=== PATIENT | male | born 1995 | race African-American/Black ===

== ENCOUNTER 2018-08-02 16:13 | Inpatient (IN) | payer BC ==
--- NOTE | 2018-08-02 16:42 | ED ---
General Adult HPI - General Chief complaint: Psychiatric Symptoms Stated complaint: suicidal Time Seen by Provider: 08/02/18 16:20 Source: patient, family, RN notes reviewed Mode of arrival: ambulatory Limitations: no limitations - History of Present Illness Initial comments: This is a 23-year-old male presents emergency Department with a past medical history significant for bipolar. Patient states he does not any medications because he never like to wait it made him feel. Patient states over the last month or so he is having more more anger also bursts and started hearing voices. Patient also states having quite a few instances where he feels suicidal. Patient states he recently had his gun loaded and constipating shooting himself. Patient decided that if he wanted to live he had the cells consult recently sold his gun so he would not shoot himself. Patient states he still feels that he might do something rash because he still feeling suicidal. Patient denies any physical complaints today. Patient denies any chest pain difficulty breathing first breath per patient denies any recent fever chills or cough per patient denies abdominal pain patient denies nausea vomiting or diarrhea. Patient denies any recent injury or trauma - Related Data Home Medications Medication Instructions Recorded Confirmed No Known Home Medications 08/02/18 08/02/18 Allergies Allergy/AdvReac Type Severity Reaction Status Date / Time No Known Allergies Allergy Verified 08/02/18 16:57 Review of Systems ROS Statement: Those systems with pertinent positive or pertinent negative responses have been documented in the HPI. ROS Other: All systems not noted in ROS Statement are negative. Past Medical History Past Medical History: Asthma History of Any Multi-Drug Resistant Organisms: None Reported Past Surgical History: No Surgical Hx Reported Past Psychological History: Bipolar Smoking Status: Current every day smoker Past Alcohol Use History: None Reported Past Drug Use History: None Reported General Exam - General Exam Comments Initial Comments: GENERAL: Patient is well-developed and well-nourished. Patient is nontoxic and well- hydrated and is in no acute distress. ENT: Neck is soft and supple. No significant lymphadenopathy is noted. Moist mucous membranes. Neck has full range of motion without eliciting any pain. EYES: The sclera were anicteric and conjunctiva were pink and moist. Extraocular movements were intact and pupils were equal round and reactive to light. Eyelids were unremarkable. PULMONARY: Unlabored respirations. Good breath sounds bilaterally. No audible rales rhonchi or wheezing was noted. CARDIOVASCULAR: There is a regular rate and rhythm without any murmurs gallops or rubs. ABDOMEN: Soft and nontender with normal bowel sounds. SKIN: Skin is clear with no lesions or rashes and otherwise unremarkable. NEUROLOGIC: Patient is alert and oriented x3. Cranial nerves II through XII are grossly intact. Motor and sensory are also intact. Normal speech, volume and content. Symmetrical smile. MUSCULOSKELETAL: Normal extremities with adequate strength and full range of motion. LYMPHATICS: No significant lymphadenopathy is noted PSYCHIATRIC: Patient states he suicidal. Patient also states he is hearing voices. Limitations: no limitations Course Vital Signs 08/02/18 16:18 Temperature 98.8 F Pulse Rate 81 Respiratory 16 Rate Blood Pressure 181/109 O2 Sat by Pulse 100 Oximetry Medical Decision Making - Medical Decision Making EPS evaluated the patient and determined that the patient needed to be admitted patient will be admitted to 3 . Disposition Clinical Impression: Suicidal ideation, Depression, Auditory hallucinations Disposition: ADMITTED IP TO THIS HOSP Condition: Stable Referrals: None,Stated [Primary Care Provider] - 1-2 days Time of Disposition: 19:27
[2018-08-02] MEDS ORDERED: ACETAMINOPHEN TAB 325 MG TAB PO PRN (19:32)
[2018-08-02] MEDS ORDERED: ZIPRASIDONE 20 MG VIAL IM PRN (19:32)
[2018-08-02] MEDS ORDERED: MAGNESIUM HYDROXIDE 2,400 MG/10 ML CUP PO PRN (19:32)
[2018-08-02] MEDS ORDERED: LORazepam 1 MG TAB PO PRN (19:32)
[2018-08-02] MEDS ORDERED: MAG HYDROX/AL HYDROX/SIMETH 30 ML CUP PO PRN (19:32)
--- NOTE | 2018-08-03 09:54 | P.HP ---
Psychiatric H&P - . H&P Date: 08/03/18 History & Physical: Allergies Allergy/AdvReac Type Severity Reaction Status Date / Time No Known Allergies Allergy Verified 08/02/18 16:57 Vital Signs Temp 97.8 F 08/03/18 06:33 Pulse 65 08/03/18 06:33 Resp 16 08/03/18 06:33 BP 116/66 08/03/18 06:33 Pulse Ox 99 08/02/18 21:00 Intake & Output 08/02/18 08/03/18 08/03/18 18:59 06:59 18:59 Weight 99.79 kg 104.6 kg Assessment and Plan Assessment: HPI: This is a 23-year-old male presents emergency Department with a past medical history significant for bipolar. Patient states he does not any medications because he never like to wait it made him feel. Patient states over the last month or so he is having more more anger also bursts and started hearing voices. Patient also states having quite a few instances where he feels suicidal. Patient states he recently had his gun loaded and constipating shooting himself. Patient decided that if he wanted to live he had the cells consult recently sold his gun so he would not shoot himself. Patient states he still feels that he might do something rash because he still feeling suicidal. Patient denies any physical complaints today. Patient denies any chest pain difficulty breathing first breath per patient denies any recent fever chills or cough per patient denies abdominal pain patient denies nausea vomiting or diarrhea. Patient denies any recent injury or trauma - Related Data Home Medications Medication Instructions Recorded Confirmed No Known Home Medications 08/02/18 08/02/18 Allergies Allergy/AdvReac Type Severity Reaction Status Date / Time No Known Allergies Allergy Verified 08/02/18 16:57 Past Medical History Past Medical History: Asthma History of Any Multi-Drug Resistant Organisms: None Reported Past Surgical History: No Surgical Hx Reported Past Psychological History: Bipolar had been talking to therapist but not on any medications Smoking Status: Current every day smoker Past Alcohol Use History: None Reported Past Drug Use History: None Reported Family history: Born and raised in [place] has 4 brothers and sisters: Mother has bipolar affective disorder but not treated: Did not finish high school: 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 Musculoskeletal Examination - Abnormal/Involuntary Movements: [none Strength: [greater than antigravity (greater than/equal to 3/5) in all extremities Muscle Tone: [no impairment Gait: [grossly normal Station: [grossly normal] Mental Status Examination - General Appearance: casual, appears stated age Speech/Language: [ slow, slurred, soft] Attitude/Behavior: [guarded, irritable, withdrawn, indifferent] Mood: [ depressed, anxious, fearful, hopelessness] Affect: [ flat, labile, blunted constricted] Orientation: [time, person, place situation] Thought Content: [ delusions Risk Factors: [He is suicidal (ideations, plan), and/or Homicidal (ideations, plan), other] Perception: [ hallucinations (auditory, tactile] Thought Processes: [goal-oriented] Concentration/Attention Span: [impaired] [Per observation and interview with the patient] Recent Memory: [wnl] [2 out of 3 in 3 minutes] Remote Memory: [wnl] [past events, as related history] Intelligence: [average] [based on history, based on vocabulary, syntax, grammar , and content] Judgement: [fair] [per patient's behavior/history of present illness] Insight: [fair] [understanding severity of illness/history of present illness] Admitting Diagnosis: [Bipolar affective disorder] Patient Strengths - Housing stability: [x] Able to vocalize needs: [x] Motivation, determination, readiness for change: [x] Setting and pursuing goals, hopes, dreams, aspirations: [x] Interpersonal relationships and supports available - family, relatives, friends : [x] Patient Limitations: [medication, pathological/unsupported environment, no interests, intellectual impairment, Initial Plan of Care: [He is admitted to formal voluntary psychiatric hospitalization for treatment of bipolar affective disorder with disruptive auditory hallucinations. He'll be evaluated by medicine, psychiatry, social work, nursing staff and recreational therapy and will be evaluated on daily basis with a multi specialty team approach with protocol is comment to the psychiatric unit such as when necessary medications staffing and protocols for safety including 15 minute checks. He'll initially be started on Lamictal 25 mg by mouth daily at bedtime and Invega 3 mg by mouth daily at bedtime. He is had a therapist in the past who may be set up with [facility] for follow-up with therapist and psychiatric medication.] Estimated Length of Stay: [5-7] Initial Discharge Plan: [home, [facility], referred to therapist Prognosis: [guarded] Justification for Inpatient Hospitalization - [Hallucinations, delusions, agitation, anxiety, depression resulting in significant loss of functioning.] [Dangerous to self, others, or property with need for controlled environment.] [Emotional or behavioral conditions and complications requiring 24 hour medical and nursing care.] [Need for special drug therapy, or other therapeutic program requiring continuous hospitalization.] [Failure of social or occupational functioning.] [Inability to meet basic life and health needs.] [ (1) Bipolar 1 disorder, depressed, severe Current Visit: Yes Status: Acute Priority: High Code(s): F31.4 - BIPOLAR DISORD, CRNT EPSD DEPRESS, SEV, W/O PSYCH FEATURES SNOMED Code(s): 853786730370 Time with Patient: Greater than 30
[2018-08-03 10:09] LABS: ALT 23 U/L (21-72); AST 25 U/L (17-59); Albumin 4.8 g/dL (3.5-5.0); Alkaline Phosphatase 63 U/L (38-126); Anion Gap 11 mmol/L; Blood Urea Nitrogen 10 mg/dL (9-20); Calcium 9.7 mg/dL (8.4-10.2); Carbon Dioxide 28 mmol/L (22-30); Chloride 105 mmol/L (98-107); Cholesterol 153 mg/dL (<200); Glucose 91 mg/dL (74-99); HDL Cholesterol 45 mg/dL (40-60); LDL Cholesterol,Calculated 82 mg/dL (0-99); Sodium 144 mmol/L (137-145); Total Bilirubin 0.7 mg/dL (0.2-1.3); Total Protein 8.2 g/dL (6.3-8.2); Triglycerides 130 mg/dL (<150)
[2018-08-03 10:20] LABS: Potassium 4.3 mmol/L (3.5-5.1)
[2018-08-03 10:45] LABS: Basophils % (A) 0 %; Eosinophils # (A) 0.4 k/uL (0-0.7); Eosinophils % (A) 5 %; HGB 16.1 gm/dL (13.0-17.5); Lymphocytes # (A) 1.4 k/uL (1.0-4.8); Lymphocytes % (A) 17 %; MCHC 33.7 g/dL (31.0-37.0); Mean Platelet Volume 7.2; Monocytes # (A) 0.9 k/uL (0-1.0); Monocytes % (A) 11 %; Neutrophils # (A) 5.2 k/uL (1.3-7.7); Neutrophils % (A) 65 %; Platelet Count 232 k/uL (150-450); RBC 5.21 m/uL (4.30-5.90); RDW 12.6 % (11.5-15.5)
[2018-08-03] MEDS ORDERED: ALBUTEROL NEBULIZED 2.5 MG/3 ML INHALATION PRN (17:21)
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
[2018-08-03 19:36] LABS: Hemoglobin A1C 5.3 % (4.0-6.0)
[2018-08-03] MEDS ORDERED: PALIPERIDONE 3 MG TAB.ER.24 PO SCH (21:00)
[2018-08-03] MEDS ORDERED: lamoTRIgine 25 MG TAB PO SCH (21:00)
--- NOTE | 2018-08-04 12:10 | P.PN ---
Subjective Progress Note Date: 08/04/18 Principal diagnosis: Bipolar affective disorder-acute psychosis Objective - Vital Signs Vital signs: Vital Signs Temp 97.8 F 08/03/18 06:33 Pulse 65 08/03/18 06:33 Resp 16 08/03/18 06:33 BP 116/66 08/03/18 06:33 Pulse Ox 99 08/02/18 21:00 - Labs CBC & Chem 7: 08/03/18 09:33 08/03/18 09:33 Assessment and Plan Assessment: HPI: This is a 23-year-old male presents emergency Department with a past medical history significant for bipolar. Patient states he does not any medications because he never like to wait it made him feel. Patient states over the last month or so he is having more more anger also bursts and started hearing voices. Patient also states having quite a few instances where he feels suicidal. Patient states he recently had his gun loaded and constipating shooting himself. Patient decided that if he wanted to live he had the cells consult recently sold his gun so he would not shoot himself. Patient states he still feels that he might do something rash because he still feeling suicidal. Patient denies any physical complaints today. Patient denies any chest pain difficulty breathing first breath per patient denies any recent fever chills or cough per patient denies abdominal pain patient denies nausea vomiting or diarrhea. Patient denies any recent injury or trauma - Related Data Home Medications Medication Instructions Recorded Confirmed No Known Home Medications 08/02/18 08/02/18 Allergies Allergy/AdvReac Type Severity Reaction Status Date / Time No Known Allergies Allergy Verified 08/02/18 16:57 Past Medical History Past Medical History: Asthma History of Any Multi-Drug Resistant Organisms: None Reported Past Surgical History: No Surgical Hx Reported Past Psychological History: Bipolar had been talking to therapist but not on any medications Smoking Status: Current every day smoker Past Alcohol Use History: None Reported Past Drug Use History: None Reported Family history: Born and raised in [place] has 4 brothers and sisters: Mother has bipolar affective disorder but not treated: Did not finish high school: 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 Musculoskeletal Examination - Abnormal/Involuntary Movements: [none Strength: [greater than antigravity (greater than/equal to 3/5) in all extremities Muscle Tone: [no impairment Gait: [grossly normal Station: [grossly normal] Mental Status Examination - General Appearance: casual, appears stated age Speech/Language: [ slow, slurred, soft] Attitude/Behavior: [guarded, irritable, withdrawn, indifferent] Mood: [ depressed, anxious, fearful, hopelessness] Affect: [ flat, labile, blunted constricted] Orientation: [time, person, place situation] Thought Content: [ delusions Risk Factors: [He is suicidal (ideations, plan), and/or Homicidal (ideations, plan), other] Perception: [ hallucinations (auditory, tactile] Thought Processes: [goal-oriented] Concentration/Attention Span: [impaired] [Per observation and interview with the patient] Recent Memory: [wnl] [2 out of 3 in 3 minutes] Remote Memory: [wnl] [past events, as related history] Intelligence: [average] [based on history, based on vocabulary, syntax, grammar , and content] Judgement: [fair] [per patient's behavior/history of present illness] Insight: [fair] [understanding severity of illness/history of present illness] Admitting Diagnosis: [Bipolar affective disorder] Patient Strengths - Housing stability: [x] Able to vocalize needs: [x] Motivation, determination, readiness for change: [x] Setting and pursuing goals, hopes, dreams, aspirations: [x] Interpersonal relationships and supports available - family, relatives, friends : [x] Patient Limitations: [medication, pathological/unsupported environment, no interests, intellectual impairment, Initial Plan of Care: [He is admitted to formal voluntary psychiatric hospitalization for treatment of bipolar affective disorder with disruptive auditory hallucinations. He'll be evaluated by medicine, psychiatry, social work, nursing staff and recreational therapy and will be evaluated on daily basis with a multi specialty team approach with protocol is comment to the psychiatric unit such as when necessary medications staffing and protocols for safety including 15 minute checks. He'll initially be started on Lamictal 25 mg by mouth daily at bedtime and Invega 3 mg by mouth daily at bedtime. He is had a therapist in the past who may be [facility] for follow-up with therapist and psychiatric medication.] Estimated Length of Stay: [5 days] Initial Discharge Plan: [home, [facility], referred to therapist Prognosis: [guarded] Justification for Inpatient Hospitalization - [Hallucinations, delusions, agitation, anxiety, depression resulting in significant loss of functioning.] [Dangerous to self, others, or property with need for controlled environment.] [Emotional or behavioral conditions and complications requiring 24 hour medical and nursing care.] [Need for special drug therapy, or other therapeutic program requiring continuous hospitalization.] [Failure of social or occupational functioning.] [Inability to meet basic life and health needs.] [ (1) Bipolar 1 disorder, depressed, severe Current Visit: Yes Status: Acute Priority: Medium Code(s): F31.4 - BIPOLAR DISORD, CRNT EPSD DEPRESS, SEV, W/O PSYCH FEATURES SNOMED Code(s): 054613426940 Plan: Increase Lamictal 50 mg po qhs; increase Invega to 6 mg by mouth daily at bedtime. He is tolerating medications well and has a decrease in auditory hallucinations and is not so frightened today. Time with Patient: Less than 30
[2018-08-04 17:36] LABS: Appearance,Urine Clear (Clear); Bilirubin,Urine Negative (Negative); Blood,Urine Small (Negative); Color,Urine Yellow; Glucose,Urine (UA) Negative (Negative); Ketones,Urine Negative (Negative); Leukocyte Esterase,Urine Trace (Negative); Mucus,Urine Occasional /hpf; Nitrite,Urine Negative (Negative); Protein,Urine Trace (Negative); RBC,Urine 3 /hpf (0-5); Specific Gravity,Urine 1.024 (1.001-1.035); Squamous Epithelial Cell,Urine <1 /hpf (0-4); WBC,Urine 1 /hpf (0-5)
[2018-08-04] MEDS ORDERED: PALIPERIDONE 6 MG TAB.ER.24 PO SCH (21:00)
[2018-08-04] MEDS ORDERED: lamoTRIgine 25 MG TAB PO SCH (21:00)
[2018-08-05 04:53] LABS: Urine Alcohol Negative (Negative); Urine Barbiturate Negative (Negative); Urine Cocaine Negative (Negative); Urine Methadone Negative (Negative); Urine Opiates Negative (Negative); Urine Phencyclidine Negative (Negative)
--- NOTE | 2018-08-05 12:04 | P.PN ---
Subjective Progress Note Date: 08/05/18 Principal diagnosis: Bipolar affective disorder-acute psychosis I Feel groggy today but the voices have decreased in intensity I have no suicidal or homicidal thoughts at the current time my anxiety still is up there at 6 out of 10 and depression as 6 out of 10. He is sleeping well at night and eating meals. He is also doing his ADLs and interacting well on the unit. Objective - Vital Signs Vital signs: Vital Signs Temp 97.8 F 08/05/18 06:43 Pulse 71 08/05/18 06:43 Resp 16 08/05/18 06:43 BP 103/61 08/05/18 06:43 Pulse Ox 99 08/02/18 21:00 - Labs CBC & Chem 7: 08/03/18 09:33 08/03/18 09:33 Labs: Abnormal Lab Results - Last 24 Hours (Table) 08/04/18 08/04/18 Range/Units 17:25 17:25 Urine Protein Trace H (Negative) Urine Blood Small H (Negative) Ur Leukocyte Esterase Trace H (Negative) Urine Mucus Occasional H (None) /hpf U Cannabinoids Screen Positive H (Negative) ng/mL Assessment and Plan Assessment: HPI: This is a 23-year-old male presents emergency Department with a past medical history significant for bipolar. Patient states he does not any medications because he never like to wait it made him feel. Patient states over the last month or so he is having more more anger also bursts and started hearing voices. Patient also states having quite a few instances where he feels suicidal. Patient states he recently had his gun loaded and constipating shooting himself. Patient decided that if he wanted to live he had the cells consult recently sold his gun so he would not shoot himself. Patient states he still feels that he might do something rash because he still feeling suicidal. Patient denies any physical complaints today. Patient denies any chest pain difficulty breathing first breath per patient denies any recent fever chills or cough per patient denies abdominal pain patient denies nausea vomiting or diarrhea. Patient denies any recent injury or trauma - Related Data Home Medications Medication Instructions Recorded Confirmed No Known Home Medications 08/02/18 08/02/18 Allergies Allergy/AdvReac Type Severity Reaction Status Date / Time No Known Allergies Allergy Verified 08/02/18 16:57 Past Medical History Past Medical History: Asthma History of Any Multi-Drug Resistant Organisms: None Reported Past Surgical History: No Surgical Hx Reported Past Psychological History: Bipolar had been talking to therapist but not on any medications Smoking Status: Current every day smoker Past Alcohol Use History: None Reported Past Drug Use History: None Reported Family history: Born and raised in [place] has 4 brothers and sisters: Mother has bipolar affective disorder but not treated: Did not finish high school: 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 Musculoskeletal Examination - Abnormal/Involuntary Movements: [none Strength: [greater than antigravity (greater than/equal to 3/5) in all extremities Muscle Tone: [no impairment Gait: [grossly normal Station: [grossly normal] Mental Status Examination - General Appearance: casual, appears stated age Speech/Language: [ slow, slurred, soft] Attitude/Behavior: [guarded, irritable, withdrawn, indifferent] Mood: [ depressed, anxious, fearful, hopelessness] Affect: [ flat, labile, blunted constricted] Orientation: [time, person, place situation] Thought Content: [ delusions Risk Factors: [He is suicidal (ideations, plan), and/or Homicidal (ideations, plan), other] Perception: [ hallucinations (auditory, tactile] Thought Processes: [goal-oriented] Concentration/Attention Span: [impaired] [Per observation and interview with the patient] Recent Memory: [wnl] [2 out of 3 in 3 minutes] Remote Memory: [wnl] [past events, as related history] Intelligence: [average] [based on history, based on vocabulary, syntax, grammar , and content] Judgement: [fair] [per patient's behavior/history of present illness] Insight: [fair] [understanding severity of illness/history of present illness] Admitting Diagnosis: [Bipolar affective disorder] Patient Strengths - Housing stability: [x] Able to vocalize needs: [x] Motivation, determination, readiness for change: [x] Setting and pursuing goals, hopes, dreams, aspirations: [x] Interpersonal relationships and supports available - family, relatives, friends : [x] Patient Limitations: [medication, pathological/unsupported environment, no interests, intellectual impairment, Initial Plan of Care: [He is admitted to formal voluntary psychiatric hospitalization for treatment of bipolar affective disorder with disruptive auditory hallucinations. He'll be evaluated by medicine, psychiatry, social work, nursing staff and recreational therapy and will be evaluated on daily basis with a multi specialty team approach with protocol is comment to the psychiatric unit such as when necessary medications staffing and protocols for safety including 15 minute checks. He'll initially be started on Lamictal 25 mg by mouth daily at bedtime and Invega 3 mg by mouth daily at bedtime. He is had a therapist in the past who [facility] with therapist and psychiatric medication.] Estimated Length of Stay: [ 3 days] Initial Discharge Plan: [home, [facility], referred to therapist Prognosis: [guarded] Justification for Inpatient Hospitalization - [Hallucinations, delusions, agitation, anxiety, depression resulting in significant loss of functioning.] [Dangerous to self, others, or property with need for controlled environment.] [Emotional or behavioral conditions and complications requiring 24 hour medical and nursing care.] [Need for special drug therapy, or other therapeutic program requiring continuous hospitalization.] [Failure of social or occupational functioning.] [Inability to meet basic life and health needs.] [ (1) Bipolar 1 disorder, depressed, severe Current Visit: Yes Status: Acute Priority: Medium Code(s): F31.4 - BIPOLAR DISORD, CRNT EPSD DEPRESS, SEV, W/O PSYCH FEATURES SNOMED Code(s): 841908055268 Plan: Increase Lamictal 100 mg po qhs; increase Invega to 9 mg by mouth daily at bedtime. He is tolerating medications well and has a decrease in auditory hallucinations and is not so frightened today. He is eating meals, sleeping well and attending groups. Time with Patient: Less than 30
[2018-08-05] MEDS: PALIPERIDONE 3 MG TAB.ER.24 PO SCH (21:04)
[2018-08-05] MEDS: lamoTRIgine 100 MG TAB PO SCH (21:04)
--- NOTE | 2018-08-06 15:37 | P.PN ---
Progress Note - Text Progress Note Date: 08/06/18 Interval history: Patient is seen in cross coverage today. He reports that his mood is doing better. He feels like his mood is stabilizing well. He does not voice any adverse psychotropic medication side effects and feels like the medication is helping. Sleep and appetite seem to be doing well. He plans on being with some family for the holidays Mental status exam: He is alert and cooperative with the interview. His speech is fluent, not rapid or pressured. Thought processes are organized. His mood is improved. He does not show any agitation. He does not verbalize any thoughts of harm to self or others. No evidence of psychosis. Plan: Patient will be maintained on current psychotropic medication regimen. He will be monitored regarding any medication side effects and we will monitor his ongoing response to treatment. We'll continue to cover this patient through the weekend.
[2018-08-06] MEDS: PALIPERIDONE 3 MG TAB.ER.24 PO SCH (20:12)
[2018-08-06] MEDS: lamoTRIgine 100 MG TAB PO SCH (20:12)
[2018-08-06 21:29] VITALS: BMI 28.8
--- NOTE | 2018-08-07 17:03 | P.PN ---
Progress Note - Text Progress Note Date: 08/07/18 Interval history: Patient is seen in [facility] today. He reports he slept through the night last night. His appetite/eating seems to be good. He does not v verbalize any adverse psychotropic medication side effects. He does feel like he is ready for discharge soon. Mental status exam: He is alert and cooperative with the interview. His speech is fluent, not rapid or pressured. Thought processes are organized. His mood seems to be improved. He denies any thoughts of harm to self others. He denies any hallucinations. He does not make any delusional statements. He does not show any agitation. Plan: Patient will be maintained on current psychotropic medication regimen. Continue to monitor for any medication side effects on monitor for his ongoing response to treatment.
[2018-08-07] MEDS: PALIPERIDONE 3 MG TAB.ER.24 PO SCH (20:18)
[2018-08-07] MEDS: lamoTRIgine 100 MG TAB PO SCH (20:18)
[2018-08-08 06:45] VITALS: BP 125/75; PULSE 86; RESP 16; TEMP 98.1
--- NOTE | 2018-08-08 12:59 | P.DS ---
Providers Date of admission: 08/02/18 19:28 Expected date of discharge: 08/08/18 Attending physician: Calos Nogueira DO Consults: 08/02/18 19:32 Consult Physician Routine Consulting Provider: Marjorie Alcantar Consult Reason/Comments: medical management Do you want consulting provider notified?: Yes, Notify in am Primary care physician: Stated None - Discharge Diagnosis(es) (1) Bipolar 1 disorder, depressed, severe HPI: This is a 23-year-old male presents emergency Department with a past medical history significant for bipolar. Patient states he does not any medications because he never like to wait it made him feel. Patient states over the last month or so he is having more more anger also bursts and started hearing voices. Patient also states having quite a few instances where he feels suicidal. Patient states he recently had his gun loaded and constipating shooting himself. Patient decided that if he wanted to live he had the cells consult recently sold his gun so he would not shoot himself. Patient states he still feels that he might do something rash because he still feeling suicidal. Patient denies any physical complaints today. Patient denies any chest pain difficulty breathing first breath per patient denies any recent fever chills or cough per patient denies abdominal pain patient denies nausea vomiting or diarrhea. Patient denies any recent injury or trauma - Related Data Home Medications Medication Instructions Recorded Confirmed No Known Home Medications 08/02/18 08/02/18 Allergies Allergy/AdvReac Type Severity Reaction Status Date / Time No Known Allergies Allergy Verified 08/02/18 16:57 Past Medical History Past Medical History: Asthma History of Any Multi-Drug Resistant Organisms: None Reported Past Surgical History: No Surgical Hx Reported Past Psychological History: Bipolar had been talking to therapist but not on any medications Smoking Status: Current every day smoker Past Alcohol Use History: None Reported Past Drug Use History: None Reported Family history: Born and raised in [place] has 4 brothers and sisters: Mother has bipolar affective disorder but not treated: Did not finish high school: 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 Current Visit: Yes Status: Acute Priority: Medium Hospital Course: He admitted to formal voluntary psychiatric hospitalization for treatment of bipolar affective disorder with disruptive auditory hallucinations. He was evaluated by medicine, psychiatry, social work, nursing staff and recreational therapy and will be evaluated on daily basis with a multi specialty team approach with protocol is comment to the psychiatric unit such as when necessary medications staffing and protocols for safety including 15 minute checks. He'll initially be started on Lamictal 25 mg by mouth daily at bedtime titrated to a dose of 100 mg at bedtime and Invega 9 mg by mouth daily at bedtime. He is had a therapist in the past who may be set up with [facility] for follow-up with therapist and psychiatric medication. Mental status examination the time of discharge: The patient presents alert, pleasant, and cooperative. There calmly seated without any agitated behavior. [He] reports that his mood is good. Affect is congruent and euthymic. [He] deny having any suicidal or homicidal ideation intent or plan. [He] denies any auditory or visual hallucinations. There is no evidence of any delusional thought content. [His] thought process is linear and goal-directed. [His] speech is fluent and nonpressured. [His] memory and concentration is grossly intact for the purposes of this session. He has done extremely well during his hospitalization and integrated well other patients going to groups and learning coping skills. He has been adherent to a medical treatment plan adherence all medications. Patient Condition at Discharge: Good Plan - Discharge Summary Discharge Rx Participant: Yes New Discharge Prescriptions: New lamoTRIgine [LaMICtal] 100 mg PO 2100 30 Days #30 tab Paliperidone [Invega] 9 mg PO 2100 30 Days #90 tab.[email or web address] Discharge Medication List Paliperidone [Invega] 9 mg PO 2100 30 Days #90 tab.[email or web address] 08/08/18 [Rx] lamoTRIgine [LaMICtal] 100 mg PO 2100 30 Days #30 tab 08/08/18 [Rx] Follow up Appointment(s)/Referral(s): [facility] [Outside] - 08/10/18 3:00 pm (Jame Carmona) None,Stated [Primary Care Provider] - 1-2 days Discharge Disposition: HOME SELF-CARE
== END 2018-08-08 13:56 | disposition home or self-care (01) | DRG 885 ==
LOC: EC 16:13 → 3MHU 19:28
PROVIDERS: ADMIT Psychiatry & Neurology Psychiatry; ATTEND Psychiatry & Neurology Psychiatry
DX: F31.5 Bipolar disorder, current episode depressed, severe, with psychotic features (principal); R45.851 Suicidal ideations; J45.909 Unspecified asthma, uncomplicated; R51 Headache; F17.210 Nicotine dependence, cigarettes, uncomplicated; Z71.6 Tobacco abuse counseling; Z87.820 Personal history of traumatic brain injury; Z81.8 Family history of other mental and behavioral disorders
CPT/HCPCS: 80053; 80061; 80306; 81001; 83036; 84443; 85025; 93005; 99285

== ENCOUNTER 2018-08-08 20:10 | Emergency (ER) | payer BC ==
[2018-08-08] MEDS ORDERED: LORazepam 2 MG/ML INJ IV STA (20:37)
[2018-08-08] MEDS ORDERED: SODIUM CHLORIDE 0.9% 500 ML 500 ML IV ONE (20:37)
[2018-08-08] MEDS ORDERED: SODIUM CHLORIDE 0.9% 1,000 ML IV ONE (20:37)
[2018-08-08 20:48] LABS: Basophils % (A) 0 %; Eosinophils # (A) 0.1 k/uL (0-0.7); Eosinophils % (A) 1 %; HCT 46.2 % (39.0-53.0); HGB 15.9 gm/dL (13.0-17.5); Lymphocytes # (A) 1.4 k/uL (1.0-4.8); Lymphocytes % (A) 8 %; MCH 31.2 pg (25.0-35.0); MCHC 34.4 g/dL (31.0-37.0); MCV 90.8 fL (80.0-100.0); Monocytes # (A) 0.6 k/uL (0-1.0); Monocytes % (A) 4 %; Neutrophils % (A) 87 %; Platelet Count 272 k/uL (150-450); RBC 5.09 m/uL (4.30-5.90); RDW 12.5 % (11.5-15.5); WBC 17.3 k/uL (3.8-10.6)
[2018-08-08 21:01] LABS: Creatine Kinase 218 U/L (55-170)
[2018-08-08 21:03] LABS: ALT 17 U/L (21-72); AST 22 U/L (17-59); Albumin 5.1 g/dL (3.5-5.0); Alkaline Phosphatase 62 U/L (38-126); Anion Gap 15 mmol/L; Blood Urea Nitrogen 17 mg/dL (9-20); Calcium 9.8 mg/dL (8.4-10.2); Carbon Dioxide 20 mmol/L (22-30); Chloride 107 mmol/L (98-107); Glucose 136 mg/dL (74-99); Potassium 4.5 mmol/L (3.5-5.1); Sodium 142 mmol/L (137-145); Total Bilirubin 0.4 mg/dL (0.2-1.3); Total Protein 8.6 g/dL (6.3-8.2)
[2018-08-08 21:06] LABS: Prothrombin Time 11.1 sec (9.0-12.0)
[2018-08-08 21:10] VITALS: RESP 18
[2018-08-08 21:14] LABS: Creatine Kinase MB <0.2 ng/mL (0.0-2.4); Troponin I 0.025 ng/mL (0.000-0.034)
[2018-08-08 21:56] VITALS: TEMP 97.6
--- NOTE | 2018-08-08 21:56 | XR ---
EXAMINATION TYPE: XR chest 2V DATE OF EXAM: 08/08/2018 COMPARISON: NONE HISTORY: Chest pain TECHNIQUE: Frontal and lateral views of the chest are obtained. FINDINGS: Heart and mediastinum are normal. Lungs are clear. Diaphragm is normal. Bony thorax appear s normal. IMPRESSION: Normal chest.
[2018-08-08 22:34] LABS: Appearance,Urine Clear (Clear); Bacteria,Urine Rare /hpf; Bilirubin,Urine Negative (Negative); Blood,Urine Trace (Negative); Color,Urine Yellow; Glucose,Urine (UA) Negative (Negative); Ketones,Urine Trace (Negative); Leukocyte Esterase,Urine Moderate (Negative); Mucus,Urine Few /hpf; Nitrite,Urine Negative (Negative); Protein,Urine 1+ (Negative); RBC,Urine 4 /hpf (0-5); Specific Gravity,Urine 1.028 (1.001-1.035); Sperm,Urine Moderate /hpf; Squamous Epithelial Cell,Urine 1 /hpf (0-4); Urobilinogen,Urine <2.0 mg/dL (<2.0); WBC,Urine 75 /hpf (0-5)
[2018-08-08 22:40] LABS: Amphetamine Screen,Urine Not Detected (NotDetected); Barbiturate Screen,Urine Not Detected (NotDetected); Benzodiazepines Screen,Urine Not Detected (NotDetected); Cocaine Screen,Urine Not Detected (NotDetected); Methadone Screen, Urine Not Detected (NotDetected); Opiate Screen,Urine Not Detected (NotDetected); Oxycodone Screen, Urine Not Detected (NotDetected); Phencyclidine Screen,Urine Not Detected (NotDetected); Tricyclic Antidepressant,Urine Not Detected (NotDetected); Urn Cannabinoid Scrn Detected (NotDetected)
[2018-08-08 23:23] VITALS: BP 140/89; PULSE 95
--- NOTE | 2018-08-08 23:32 | ED ---
General Adult HPI - General Source: patient, family Mode of arrival: ambulatory Limitations: no limitations <Angelo Neal - Last Filed: 08/08/18 23:32> <Barby Pérez - Last Filed: 08/08/18 23:35> - General Chief complaint: Recheck/Abnormal Lab/Rx Stated complaint: Poss medication reaction Time Seen by Provider: 08/08/18 20:27 - Related Data Home Medications Medication Instructions Recorded Confirmed Paliperidone [Invega] 9 mg PO HS 08/08/18 08/08/18 lamoTRIgine [LaMICtal] 100 mg PO HS 08/08/18 08/08/18 Allergies Allergy/AdvReac Type Severity Reaction Status Date / Time No Known Allergies Allergy Verified 08/08/18 21:07 Review of Systems ROS Other: All systems not noted in ROS Statement are negative. <Angelo Neal - Last Filed: 08/08/18 23:32> ROS Other: All systems not noted in ROS Statement are negative. <Barby Pérez - Last Filed: 08/08/18 23:35> ROS Statement: Those systems with pertinent positive or pertinent negative responses have been documented in the HPI. Past Medical History Past Medical History: Asthma History of Any Multi-Drug Resistant Organisms: None Reported Past Surgical History: No Surgical Hx Reported Past Anesthesia/Blood Transfusion Reactions: No Reported Reaction Past Psychological History: Bipolar Smoking Status: Current every day smoker Past Alcohol Use History: None Reported Past Drug Use History: Marijuana - Past Family History Father History Unknown: Yes Mother Additional Family Medical History / Comment(s): Bipolar <Angelo Neal - Last Filed: 08/08/18 23:32> General Exam Limitations: no limitations <Angelo Neal - Last Filed: 08/08/18 23:32> Vital Signs 08/08/18 08/08/18 08/08/18 20:14 21:09 21:55 Temperature 98.1 F 97.6 F Pulse Rate 142 H 107 H 101 H Respiratory 44 H 18 18 Rate Blood Pressure 175/104 130/90 120/63 O2 Sat by Pulse 98 97 99 Oximetry 08/08/18 23:22 Temperature Pulse Rate 95 Respiratory 18 Rate Blood Pressure 140/89 O2 Sat by Pulse 99 Oximetry Medical Decision Making - Lab Data Result diagrams: 08/08/18 20:34 08/08/18 20:34 <Angelo Neal - Last Filed: 08/08/18 23:32> - Lab Data Result diagrams: 08/08/18 20:34 08/08/18 20:34 <Barby Pérez - Last Filed: 08/08/18 23:35> - Medical Decision Making The patient was seen and examined. All diagnostics are reviewed. The case is discussed with the PA and I agree with the findings as documented. (Angelo Neal) - Lab Data Lab Results 08/08/18 08/08/18 08/08/18 Range/Units 20:34 20:34 20:34 WBC 17.3 H (3.8-10.6) k/uL RBC 5.09 (4.30-5.90) m/uL Hgb 15.9 (13.0-17.5) gm/dL Hct 46.2 (39.0-53.0) % MCV 90.8 (80.0-100.0) fL MCH 31.2 (25.0-35.0) pg MCHC 34.4 (31.0-37.0) g/dL RDW 12.5 (11.5-15.5) % Plt Count 272 (150-450) k/uL Neutrophils % 87 % Lymphocytes % 8 % Monocytes % 4 % Eosinophils % 1 % Basophils % 0 % Neutrophils # 15.0 H (1.3-7.7) k/uL Lymphocytes # 1.4 (1.0-4.8) k/uL Monocytes # 0.6 (0-1.0) k/uL Eosinophils # 0.1 (0-0.7) k/uL Basophils # 0.0 (0-0.2) k/uL PT (9.0-12.0) sec INR (<1.2) APTT (22.0-30.0) sec Sodium 142 (137-145) mmol/L Potassium 4.5 (3.5-5.1) mmol/L Chloride 107 (98-107) mmol/L Carbon Dioxide 20 L (22-30) mmol/L Anion Gap 15 mmol/L BUN 17 (9-20) mg/dL Creatinine 0.94 (0.66-1.25) mg/dL Est GFR (CKD-EPI)AfAm >90 (>60 ml/min/1.73 sqM) Est GFR (CKD-EPI)NonAf >90 (>60 ml/min/1.73 sqM) Glucose 136 H (74-99) mg/dL Plasma Lactic Acid Luis F (0.7-2.0) mmol/L Calcium 9.8 (8.4-10.2) mg/dL Total Bilirubin 0.4 (0.2-1.3) mg/dL AST 22 (17-59) U/L ALT 17 L (21-72) U/L Alkaline Phosphatase 62 (38-126) U/L Total Creatine Kinase 218 H (55-170) U/L CK-MB (CK-2) <0.2 (0.0-2.4) ng/mL CK-MB (CK-2) Rel Index Troponin I 0.025 (0.000-0.034) ng/mL Total Protein 8.6 H (6.3-8.2) g/dL Albumin 5.1 H (3.5-5.0) g/dL Urine Color Urine Appearance (Clear) Urine pH (5.0-8.0) Ur Specific [place] (1.001-1.035) Urine Protein (Negative) Urine Glucose (UA) (Negative) Urine Ketones (Negative) Urine Blood (Negative) Urine Nitrite (Negative) Urine Bilirubin (Negative) Urine Urobilinogen (<2.0) mg/dL Ur Leukocyte Esterase (Negative) Urine RBC (0-5) /hpf Urine WBC (0-5) /hpf Ur Squamous Epith Cells (0-4) /hpf Urine Bacteria (None) /hpf Urine Mucus (None) /hpf Urine Sperm (None) /hpf Urine Opiates Screen (NotDetected) Ur Oxycodone Screen (NotDetected) Urine Methadone Screen (NotDetected) Ur Propoxyphene Screen (NotDetected) Ur Barbiturates Screen (NotDetected) U Tricyclic Antidepress (NotDetected) Ur Phencyclidine Scrn (NotDetected) Ur Amphetamines Screen (NotDetected) U Methamphetamines Scrn (NotDetected) U Benzodiazepines Scrn (NotDetected) Urine Cocaine Screen (NotDetected) U Marijuana (THC) Screen (NotDetected) 08/08/18 08/08/18 08/08/18 Range/Units 20:34 20:34 21:55 WBC (3.8-10.6) k/uL RBC (4.30-5.90) m/uL Hgb (13.0-17.5) gm/dL Hct (39.0-53.0) % MCV (80.0-100.0) fL MCH (25.0-35.0) pg MCHC (31.0-37.0) g/dL RDW (11.5-15.5) % Plt Count (150-450) k/uL Neutrophils % % Lymphocytes % % Monocytes % % Eosinophils % % Basophils % % Neutrophils # (1.3-7.7) k/uL Lymphocytes # (1.0-4.8) k/uL Monocytes # (0-1.0) k/uL Eosinophils # (0-0.7) k/uL Basophils # (0-0.2) k/uL PT 11.1 (9.0-12.0) sec INR 1.0 (<1.2) APTT 22.0 (22.0-30.0) sec Sodium (137-145) mmol/L Potassium (3.5-5.1) mmol/L Chloride (98-107) mmol/L Carbon Dioxide (22-30) mmol/L Anion Gap mmol/L BUN (9-20) mg/dL Creatinine (0.66-1.25) mg/dL Est GFR (CKD-EPI)AfAm (>60 ml/min/1.73 sqM) Est GFR (CKD-EPI)NonAf (>60 ml/min/1.73 sqM) Glucose (74-99) mg/dL Plasma Lactic Acid Luis F 3.2 H* (0.7-2.0) mmol/L Calcium (8.4-10.2) mg/dL Total Bilirubin (0.2-1.3) mg/dL AST (17-59) U/L ALT (21-72) U/L Alkaline Phosphatase (38-126) U/L Total Creatine Kinase (55-170) U/L CK-MB (CK-2) (0.0-2.4) ng/mL CK-MB (CK-2) Rel Index Troponin I (0.000-0.034) ng/mL Total Protein (6.3-8.2) g/dL Albumin (3.5-5.0) g/dL Urine Color Yellow Urine Appearance Clear (Clear) Urine pH 6.0 (5.0-8.0) Ur Specific [place] 1.028 (1.001-1.035) Urine Protein 1+ H (Negative) Urine Glucose (UA) Negative (Negative) Urine Ketones Trace H (Negative) Urine Blood Trace H (Negative) Urine Nitrite Negative (Negative) Urine Bilirubin Negative (Negative) Urine Urobilinogen <2.0 (<2.0) mg/dL Ur Leukocyte Esterase Moderate H (Negative) Urine RBC 4 (0-5) /hpf Urine WBC 75 H (0-5) /hpf Ur Squamous Epith Cells 1 (0-4) /hpf Urine Bacteria Rare H (None) /hpf Urine Mucus Few H (None) /hpf Urine Sperm Moderate H (None) /hpf Urine Opiates Screen Not Detected (NotDetected) Ur Oxycodone Screen Not Detected (NotDetected) Urine Methadone Screen Not Detected (NotDetected) Ur Propoxyphene Screen Not Detected (NotDetected) Ur Barbiturates Screen Not Detected (NotDetected) U Tricyclic Antidepress Not Detected (NotDetected) Ur Phencyclidine Scrn Not Detected (NotDetected) Ur Amphetamines Screen Not Detected (NotDetected) U Methamphetamines Scrn Not Detected (NotDetected) U Benzodiazepines Scrn Not Detected (NotDetected) Urine Cocaine Screen Not Detected (NotDetected) U Marijuana (THC) Screen Detected H (NotDetected) Disposition <Angelo Neal - Last Filed: 08/08/18 23:32> Is patient prescribed a controlled substance at d/c from ED?: No Time of Disposition: 23:34 <Barby Pérez - Last Filed: 08/08/18 23:35> Clinical Impression: Medication reaction Disposition: HOME SELF-CARE Condition: Good Instructions: Tremors (ED), Extrapyramidal Symptoms (ED) Additional Instructions: We recommend you stop taking your psychiatric medications until further direction by your psychiatrist. Follow-up with her psychiatrist tomorrow as you have planned. Return immediately for any new, worsening, or concerning symptoms. Symptoms: Tachycardia, diaphoresis, clonus type muscle spasms to arms, legs, neck. Referrals: None,Stated [Primary Care Provider] - 1-2 days
[2018-08-10 14:12] LABS: C. trachomatis,PCR Negative (Neg,Equiv); Chlamydia trachomatis Source Urine; N. gonorrhoeae,PCR Negative (Neg,Equiv); Neisseria Source Urine
== END 2018-08-08 23:54 | disposition home or self-care (01) ==
LOC: EC 20:10
DX: R25.1 Tremor, unspecified (principal); T42.6X5A Adverse effect of other antiepileptic and sedative-hypnotic drugs, initial encounter; F31.9 Bipolar disorder, unspecified; F17.200 Nicotine dependence, unspecified, uncomplicated; Z79.899 Other long term (current) drug therapy
CPT/HCPCS: 36415; 93005; 80053; 82550; 82553; 83605; 84484; 85025; 85610; 85730; 81001; 80306; 71046; 99285; 96374; 96361; J2060; 87086; 87491; 87591